=== PATIENT | male | born 1960 | race Caucasian/White ===

== ENCOUNTER 2022-06-21 08:58 | Outpatient (CLI) | payer BC, SELFPAY ==
[2022-06-21 09:27] LABS: Albumin* 4.5 g/dL (3.3-5.0); Chloride* 105 mmol/L (96-114); Potassium* 4.4 mmol/L (3.6-5.1); Sodium* 139 mmol/L (135-149)
[2022-06-21 09:29] LABS: Cholesterol* 200 mg/dL (90-199); Creatinine* 0.7 mg/dL (0.5-1.5); Estimated Glomerular Filt Rate 106 ml/min
[2022-06-21 09:30] LABS: Alanine Aminotransferase* 25 U/L (4-50); Alkaline Phosphatase* 38 U/L (40-150); Aspartate Amino Transferase* 30 U/L (12-35); Bilirubin Total* 0.6 mg/dL (0.1-1.5); Blood Urea Nitrogen* 17 mg/dL (7-30); Carbon Dioxide* 30 mmol/L (20-32); Total Protein* 7.1 g/dL (6.0-8.3); Triglycerides* 76 mg/dL (40-149)
[2022-06-21 09:31] LABS: Calcium* 9.1 mg/dL (8.4-10.6); HDL Cholesterol* 66 mg/dL (>=40); LDL Cholesterol Calculated 119 mg/dL (<100)
[2022-06-21 09:40] LABS: Glucose* 98 mg/dL (60-115)
[2022-06-21 09:58] LABS: PSA Screen* 1.42 ng/mL (0.10-4.00)
== END 2022-06-21 08:59 | disposition home or self-care (01) ==
PROVIDERS: PCP Internal Medicine; Visit Provider Internal Medicine
DX: Z00.00 Encounter for general adult medical examination without abnormal findings (principal); Z13.6 Encounter for screening for cardiovascular disorders; Z12.5 Encounter for screening for malignant neoplasm of prostate
CPT/HCPCS: 80053; 80061; 84153

== ENCOUNTER 2024-08-16 07:38 | Outpatient (CLI) | payer BC, SELFPAY | END 2024-08-16 07:39 | disposition home or self-care (01) | LOC: NFLDREF 08-17 07:28 | PROVIDERS: PCP Internal Medicine; Referring Provider Internal Medicine; Visit Provider Internal Medicine | DX: E78.5 Hyperlipidemia, unspecified (principal); Z12.5 Encounter for screening for malignant neoplasm of prostate; Z13.9 Encounter for screening, unspecified | CPT/HCPCS: 80053; 80061; G0103 ==

== ENCOUNTER 2024-09-13 06:27 | Outpatient (CLI) | payer BC, SELFPAY | END 2024-09-13 06:28 | disposition home or self-care (01) | LOC: OP CLINIC 06:28 | PROVIDERS: PCP Internal Medicine; Visit Provider Internal Medicine | DX: Z53.8 Procedure and treatment not carried out for other reasons (principal) ==

== ENCOUNTER 2025-02-28 08:40 | Outpatient (CLI) | payer BC, SELFPAY ==
--- NOTE | 2025-02-28 09:55 | P.ANES_ITS ---
Anesthesia Charges Start Date/Time Anesthesia Start Date: 02/28/25 Anesthesia Start Time: 09:25 Stop Date/Time Anesthesia Stop Date: 02/28/25 Anesthesia Stop Time: 09:49 Coding CPT Codes CPT Codes: ANES LWR INTST SCR COLSC - [id number] ([id number]) P1 - NORMAL HEALTHY PATIENT, QK - CIVIL ENGINEER HELPER 2-4 CNCRNT ANES PROC
--- NOTE | 2025-02-28 09:55 | W.ANESCHARGE ---
Anesthesia Charges Start Date/Time Anesthesia Start Date: 02/28/25 Anesthesia Start Time: 09:25 Stop Date/Time Anesthesia Stop Date: 02/28/25 Anesthesia Stop Time: 09:49 Coding CPT Codes CPT Codes: ANES LWR INTST SCR COLSC - [id number] ([id number]) P1 - NORMAL HEALTHY PATIENT, QK - DIRECTOR OF RECRUITING 2-4 CNCRNT ANES PROC
--- NOTE | 2025-02-28 10:34 | P.ANES_ITS ---
Anesthesia Charges Start Date/Time Anesthesia Start Date: 02/28/25 Anesthesia Start Time: 09:25 Stop Date/Time Anesthesia Stop Date: 02/28/25 Anesthesia Stop Time: 09:49 Coding CPT Codes CPT Codes: SANJUANITA LWR INTST SCR COLSC - [id number] ([id number]) P1 - NORMAL HEALTHY PATIENT, QK - DETECTIVE AND INTELLIGENCE ANALYST 2-4 CNCRNT ANES PROC, QX - TRAVEL OCCUPATIONAL THERAPIST SVC W/ MED DIRECTION
--- NOTE | 2025-02-28 10:34 | W.ANESCHARGE ---
Anesthesia Charges Start Date/Time Anesthesia Start Date: 02/28/25 Anesthesia Start Time: 09:25 Stop Date/Time Anesthesia Stop Date: 02/28/25 Anesthesia Stop Time: 09:49 Coding CPT Codes CPT Codes: SANJUANITA LWR INTST SCR COLSC - [id number] ([id number]) P1 - NORMAL HEALTHY PATIENT, QK - DIRECTOR OF ACQUISITIONS 2-4 CNCRNT ANES PROC, QX - RUG CLEANER SVC W/ MED DIRECTION
== END 2025-02-28 08:41 | disposition home or self-care (01) ==
LOC: OP CLINIC 08:41
PROVIDERS: PCP Internal Medicine; Visit Provider Surgery
DX: Z12.11 Encounter for screening for malignant neoplasm of colon (principal); Z83.719 Family history of colon polyps, unspecified
CPT/HCPCS: 00812; 45378; J2704